=== PATIENT | female | born 1960 | race Caucasian/White ===

== ENCOUNTER → 2024-01-27 14:08 | Outpatient (REF) | payer OTHER, SELFPAY | LOC: HWRAD 14:08 | PROVIDERS: ATTENDING PHYSICIAN Internal Medicine Endocrinology, Diabetes & Metabolism; FAMILY PHYSICIAN Family Medicine | DX: E04.1 Nontoxic single thyroid nodule (principal) | CPT/HCPCS: 76536 ==

== ENCOUNTER → 2024-11-02 10:29 | Outpatient (REF) | payer OTHER, SELFPAY | LOC: RAD 10:29 | PROVIDERS: ATTENDING PHYSICIAN Family Medicine | DX: M25.561 Pain in right knee (principal); M25.562 Pain in left knee | CPT/HCPCS: 73564 ==

== ENCOUNTER → 2025-01-15 09:56 | Outpatient (REF) | payer OTHER, SELFPAY | LOC: HWRAD 09:56 | PROVIDERS: ATTENDING PHYSICIAN Internal Medicine Endocrinology, Diabetes & Metabolism; FAMILY PHYSICIAN Family Medicine | DX: E04.1 Nontoxic single thyroid nodule (principal) | CPT/HCPCS: 76536 ==

== ENCOUNTER 2025-09-07 13:23 | Emergency (ER) | payer OTHER, SELFPAY ==
[2025-09-07 13:27] VITALS: BP 168/110
[2025-09-07 15:49] VITALS: BP 176/95
--- NOTE | 2025-09-07 16:33 | ED.GENMED ---
History of Present Illness
<Maury Zhang MD, Resident - Last Filed: 09/07/25 17:18>
General
Chief Complaint: Fall
Source: patient
Time Seen by Provider: 09/07/25 16:13
History of Present Illness
History of Present Illness:
Patient is a 65-year-old female with past medical history of hypertension and A-fib (prior, no longer on any treatment, including blood thinners) who presented to the [place] ED following a fall this afternoon. Patient tripped over a curb in a
parking lot and fell, striking her right forehead on the asphalt. Bystanders told the patient that her head struck the ground and bounced back up, and they encouraged her to go to the ED for a head scan. No loss of consciousness, changes in
vision, seizure-like activity, weakness, or changes in sensation. Patient's right shoulder, bilateral knees, and bilateral wrists are also sore from the fall. Patient reports she is currently tired, but she attributes this to the stress of the
fall.
Past History
<Maury Zhang MD, Resident - Last Filed: 09/07/25 17:18>
Past History
ED Past Medical History: Arrthythmia (A-fib (prior, no longer on treatment)), HTN and Hypothyroidism
ED Past Surgical History: Other (Partial thyroidectomy)
Social History
Tobacco: Former smoker
Alcohol: Former
Drug: None
Personal:
Living: with family
Review of Systems
<Maury Zhagn MD, Resident - Last Filed: 09/07/25 17:18>
Review of Systems
Constitutional: Denies fever, fatigue or chills
Respiratory: Denies trouble breathing
Cardiac: Denies chest pain or syncope
ABD/GI: Denies abdominal pain, nausea, vomiting or diarrhea
Musculoskeletal: Reports other (Joint stiffness in right shoulder, bilateral wrists, and bilateral knees)
Neurological: Denies dizzy, headache, weakness or numbness
Hematologic/Lymphatic: Reports bruising (Above right eye)
Phy Exam
<Maury Zhang MD, Resident - Last Filed: 09/07/25 17:18>
Physical Exam
Physical Exam:
General: NAD. Conversant.
Neuro: Visual wing intact. EOMI. Motor, sensation intact all extremities. CN II through XII intact. No dysmetria.
MSK: Small (~3 cm) area of swelling, ecchymosis near right eyebrow. Full ROM all extremities. Mild soreness on palpation of R shoulder. R patella exquisitely TTP (08/27 pain).
CV: S1, S2 noted. No M/R/G. LUE pulse 2+.
Pulm: CTAB. No wheezes or crackles.
Course
<Maury Zhang MD, Resident - Last Filed: 09/07/25 17:18>
Orders/Labs/Results
Orders:
Orders
09/07/25 13:[address] [CT Head W/o Iv Contrast] Urgent
Comment:
Reason For Exam: head injury
09/07/25 16:44
Ketorolac [Toradol] 15 mg IM NOW STA
Knee, Right 4 or More Views [CR Knee- Right 4 Or More View*] Urgent
Comment:
Reason For Exam: fall, patella pain
Vital Signs
Initial and Last Documented VS:
Initial Vital Signs
Temp Pulse Resp BP Pulse Ox
98.2 F 80 16 168/110 97
09/07/25 13:27 09/07/25 13:27 09/07/25 13:27 09/07/25 13:27 09/07/25 13:27
Last Documented Vital Signs
Temp Pulse Resp BP Pulse Ox
98.2 F 72 19 176/95 97
09/07/25 13:27 09/07/25 15:49 09/07/25 15:49 09/07/25 15:49 09/07/25 16:34
<Krista Porter DO - Last Filed: 09/07/25 16:48>
Orders/Labs/Results
Orders:
Orders
09/07/25 13:[address] [CT Head W/o Iv Contrast] Urgent
Comment:
Reason For Exam: head injury
09/07/25 16:44
Ketorolac [Toradol] 15 mg IM NOW STA
Knee, Right 4 or More Views [CR Knee- Right 4 Or More View*] Urgent
Comment:
Reason For Exam: fall, patella pain
Vital Signs
Initial and Last Documented VS:
Initial Vital Signs
Temp Pulse Resp BP Pulse Ox
98.2 F 80 16 168/110 97
09/07/25 13:27 09/07/25 13:27 09/07/25 13:27 09/07/25 13:27 09/07/25 13:27
Last Documented Vital Signs
Temp Pulse Resp BP Pulse Ox
98.2 F 72 19 176/95 97
09/07/25 13:27 09/07/25 15:49 09/07/25 15:49 09/07/25 15:49 09/07/25 16:34
<Maury Zhang MD, Resident - Last Filed: 09/07/25 17:18>
MDM/Problems Addressed
Differential Diagnosis Includes:
Scalp hematoma
Epidural hematoma
Subdural hematoma
Concussion
Patella fracture
MDM/Problems Addressed:
Assessment: Patient is a 65-year-old female (not on blood thinners) who presented to the ED after falling and striking her right forehead on asphalt this afternoon, without subsequent loss of consciousness, seizure, neurologic deficits, or systemic
symptoms. Non-contrast head CT findings are consistent with a small right frontal scalp hematoma with no acute intracranial abnormality. Suspect traumatic scalp hematoma without intracranial pathology. Patient also had complaints of right
patellar tenderness to palpation, raising concern for potential patellar fracture vs. contusion.
Plan:
#R frontal scalp hematoma
#R patellar contusion/fracture
-Diagnostic:
Imaging: CT head without contrast; R knee x-ray
-Therapeutic:
Toradol for pain control
Ice and compression for scalp hematoma and joint soreness
<Maury Zhang MD, Resident - Last Filed: 09/07/25 17:18>
*Pulse Oximetry
SaO2: 97
Oxygen Mode of Delivery: Room air
Patient hypoxic: no
*Critical Care Note
Total Time (30-74mins, 75-104mins- exclusive of procedures): Not Applicable
ED Attending Note
<Maury Zahng MD, Resident - Last Filed: 09/07/25 17:18>
-
Portions of this chart may have been created with voice recognition software.� Occasional wrong word or��sound alike� substitutions may have occurred due to the inherent limitations of voice recognition software.
<Krista Porter DO - Last Filed: 09/07/25 16:48>
ED Attending Note
Patient seen and examined by attending physician: Yes
I performed the substantive portion of visit, reviewed & personally made and approve the management plan that is documented in note by myself or XAVIER.: Yes
I performed a history and physical exam of patient and discussed management with resident, I reviewed resident's note and agree with documented findings and plan of care.: Yes
ED Attending Note:
65-year-old female with prior history of A-fib, not presently on any anticoagulation, presenting to the emergency department after a fall. Patient reports around 1 PM she tripped in a parking lot on concrete and struck the right side of her head on
the blacktop. Denies LOC. Notes dizziness and headache after the event which has improved. Notes hematoma to the right side of the forehead. Denies any visual changes. Denies any weakness or numbness. Notes some mild right shoulder soreness
and right knee discomfort. Denies any amnesia to the event. Denies prodromal symptoms such as dizziness or lightheadedness. Denies additional acute medical complaints. Vital signs are significant for high blood pressure.
On exam patient is in no acute distress, GCS of 15. Obvious sign of head trauma with small hematoma to the right forehead with some ecchymosis to the lateral aspect of the orbit. Extraocular movements are intact. No pain with extraocular
movement. Patient denies any visual changes. Without any present concern for entrapment or retrobulbar hematoma. Given mechanism of injury, CT head obtained prior to my assessment which was normal, no intracranial trauma. Mild discomfort on
palpation to the right shoulder, however range of motion intact. No obvious signs of trauma, no deformity. On palpation of the right knee, focal tenderness to the patella, however range of motion intact. No obvious deformity. Will screen with
x-ray imaging. Toradol administered for pain. Ultimate plan for outpatient supportive therapy and patient educated on postconcussive syndrome
Discharge Plan
Departure
Prescriptions:
No Action
fluticasone propionate 1 SPRAY spray,suspension
1 spray intranasal DAILY PRN (Reason: allergies)
famotidine 20 MG tablet
20 mg PO BID Qty: 28 0RF
Rx Instructions:
Take 20 mg twice a day for 14 days
ascorbic acid (vitamin C) [Vitamin C] 500 MG tablet
1,000 mg PO BID Qty: 56 0RF
Rx Instructions:
Take 1,000 mg twice a day for 14 days
aspirin 81 MG tablet,chewable
81 mg PO DAILY Qty: 14 0RF
Rx Instructions:
Take 81 mg daily for 14 days
zinc sulfate 220 MG capsule
220 mg PO DAILY Qty: 14 0RF
Rx Instructions:
Take 220 mg daily for 14 days
cholecalciferol (vitamin D3) 1,000 UNITS tablet
2,000 units PO DAILY Qty: 28 0RF
Rx Instructions:
Take 2,000 units daily for 14 days
melatonin 5 MG tablet
5 mg PO HS Qty: 14 0RF
Rx Instructions:
Take 5 mg daily at bedtime for 14 days
azithromycin 250 MG tablet
250 mg PO Daily Qty: 6 0RF
Rx Instructions:
500mg day 1, 250mg days 2-5
Eliquis 5 mg tablet
5 mg PO BID Qty: 60 0RF
diltiazem HCl [Cardizem CD] 120 mg capsule,extended release 24hr
120 mg PO DAILY Qty: 30 0RF
Referrals:
UNKNOWN - PT DOES,NOT KNOW [Unknown Provider]
Interventions
Interventions:
*Risk Screen - Suicide Last Done: 09/07/25 13:24
*Neglect/Abuse Screening Last Done: 09/07/25 13:24
ED-Musculoskeletal Assessment Last Done: 09/07/25 15:52
ED- Neurological Assessment Last Done: 09/07/25 15:52
ED-Skin Assessment Last Done: 09/07/25 15:52
Discharge Date and Time
Print Language: SAO TOMEAN
[2025-09-07] MEDS: TORADOL 15 MG IM (17:02)
== END 2025-09-07 17:58 | disposition home or self-care (01) ==
LOC: EMR 13:23
PROVIDERS: EMERGENCY PHYSICIAN Student in an Organized Health Care Education/Training Program; FAMILY PHYSICIAN Family Medicine
DX: S09.90XA Unspecified injury of head, initial encounter (principal); S00.83XA Contusion of other part of head, initial encounter; W10.1XXA Fall (on)(from) sidewalk curb, initial encounter; W18.09XA Striking against other object with subsequent fall, initial encounter; Y93.01 Activity, walking, marching and hiking; Y92.481 Parking lot as the place of occurrence of the external cause; I48.91 Unspecified atrial fibrillation; I10 Essential (primary) hypertension; E89.0 Postprocedural hypothyroidism; Z79.82 Long term (current) use of aspirin; Z87.891 Personal history of nicotine dependence
CPT/HCPCS: 99284; 96372; 70450; 73564